=== PATIENT | female | born 1995 | race Two or more races ===

== ENCOUNTER → 2019-10-10 | Outpatient (REF) | payer OTHER | LOC: M SFHCLERA 15:24 | PROVIDERS: ATTEND Physician Assistant | DX: R30.0 Dysuria (principal) | CPT/HCPCS: 81002; 87086; G0463 ==

== ENCOUNTER 2019-11-15 13:04 | Inpatient (IN) | payer OTHER ==
[2019-11-15] MEDS ORDERED: AZITHROMYCIN INJ 500MG VIAL (J0456 PER 500MG) ONE (16:17)
[2019-11-15] MEDS ORDERED: BICITRA 30ML SOLN UDC ONE (16:17)
[2019-11-15] MEDS ORDERED: ceFAZolin 2 GM/D5W 50 ML IV BAG (J0690 PER 500MG) ONE (16:17)
[2019-11-15] MEDS ORDERED: MORPHINE PRES-FREE INJ 10 MG/10 ML VIAL (J2274) As Ordered ONE (17:52)
[2019-11-15] MEDS ORDERED: KETOROLAC 60MG 2ML VIAL As Ordered ONE (18:03)
[2019-11-15] MEDS ORDERED: ONDANSETRON 4MG/2ML VIAL As Ordered ONE (18:03)
[2019-11-15] MEDS ORDERED: ePHEDrine SULFATE 25 MG/5 ML(5MG/ML) SYRINGE As Ordered ONE (18:04)
[2019-11-15] MEDS ORDERED: PHENYLephrine HCL 500 MCG/5 ML (100MCG/ML) SYRINGE (J2370) As Ordered ONE (18:04)
[2019-11-15] MEDS ORDERED: OXYTOCIN 30 UNITS IN 0.9% NaCl 500ML IV BAG (J2590) As Ordered ONE ×2 (18:05→19:14)
[2019-11-15] MEDS ORDERED: METHYLERGONOVINE MALEATE 0.2 MG TAB As Ordered ONE (19:18)
[2019-11-15] MEDS ORDERED: METHYLERGONOVINE MALEATE 0.2 MG TAB ONE (19:18)
[2019-11-15] MEDS ORDERED: diphenhydrAMINE 50MG/ML VIAL (J1200) As Ordered ONE (19:32)
[2019-11-15] MEDS ORDERED: PERCOCET 5MG/325MG TAB As Ordered ONE (22:11)
[2019-11-15] MEDS ORDERED: PERCOCET 5MG/325MG TAB ONE (22:11)
[2019-11-16] MEDS ORDERED: METHYLERGONOVINE MALEATE 0.2 MG TAB As Ordered ONE ×2 (00:35→03:39)
[2019-11-16] MEDS ORDERED: KETOROLAC 30 MG/ML 1ML VIAL As Ordered ONE ×4 (00:36→17:24)
[2019-11-16] MEDS ORDERED: METHYLERGONOVINE MALEATE 0.2 MG TAB ONE ×2 (03:39→12:35)
[2019-11-16] MEDS ORDERED: KETOROLAC 30 MG/ML 1ML VIAL ONE ×3 (03:39→12:35)
[2019-11-16] MEDS ORDERED: diphenhydrAMINE 50MG/ML VIAL (J1200) ONE (03:39)
[2019-11-16] MEDS ORDERED: PRENATAL VITAMINS CHEWABLE TABLET ONE (03:39)
[2019-11-16] MEDS ORDERED: PRENATAL VITAMINS CHEWABLE TABLET As Ordered ONE (09:02)
[2019-11-16] MEDS ORDERED: diphenhydrAMINE 50MG/ML VIAL (J1200) As Ordered ONE (09:02)
[2019-11-16] MEDS ORDERED: PERCOCET 5MG/325MG TAB As Ordered ONE (20:00)
[2019-11-16] MEDS ORDERED: MIRALAX *UNIT DOSE* 17GM PACKET As Ordered ONE (20:05)
[2019-11-17] MEDS ORDERED: PERCOCET 5MG/325MG TAB ONE (01:56)
[2019-11-17] MEDS ORDERED: PERCOCET 5MG/325MG TAB As Ordered ONE (01:56)
[2019-11-17] MEDS ORDERED: IBUPROFEN 800 MG TAB ONE ×2 (04:57→09:30)
[2019-11-17] MEDS ORDERED: MIRALAX *UNIT DOSE* 17GM PACKET ONE (09:30)
[2019-11-17] MEDS ORDERED: PRENATAL VITAMINS CHEWABLE TABLET As Ordered ONE (09:30)
[2019-11-17] MEDS ORDERED: MIRALAX *UNIT DOSE* 17GM PACKET As Ordered ONE (09:30)
[2019-11-17] MEDS ORDERED: PRENATAL VITAMINS CHEWABLE TABLET ONE (09:30)
[2019-11-17] MEDS ORDERED: IBUPROFEN 800 MG TAB As Ordered ONE ×2 (09:31→16:57)
[2019-12-23 12:42] LABS: HEMATOCRIT 40.1 % (36.0-47.0); HEMOGLOBIN 12.8 g/dl (12.0-15.5); MEAN CORPUSCULAR HEMOGLOBIN 26.6 pg (27.0-33.0); MEAN CORPUSCULAR HGB CONC 31.9 g/dl (32.0-36.5); MEAN CORPUSCULAR VOLUME 83.2 fl (80.0-96.0); PLATELET COUNT, AUTOMATED 284 10^3/uL (150-450); RED BLOOD COUNT 4.82 10^6/uL (4.00-5.40)
[2019-12-29 12:56] LABS: ALT/SGPT 19 U/L (12-78); BILIRUBIN,TOTAL 0.5 MG/DL (0.2-1.0); BLOOD UREA NITROGEN 7 MG/DL (7-18); CALCIUM LEVEL 8.8 MG/DL (8.5-10.1); CARBON DIOXIDE LEVEL 22 MEQ/L (21-32); CHLORIDE LEVEL 106 MEQ/L (98-107); CREATININE FOR GFR 0.52 MG/DL (0.55-1.30); GLOMERULAR FILTRATION RATE > 60.0 (>60); GLUCOSE, FASTING 82 MG/DL (70-100); POTASSIUM SERUM 3.8 MEQ/L (3.5-5.1); SODIUM LEVEL 138 MEQ/L (136-145)
--- NOTE | 2020-01-08 13:02 | IPN ---
DATE: 11/15/2019 This patient has requested circumcision of their male . After discussing risks and benefits of circumcision, the medical and nomedical indications, penile block, and aftercare, expressed understanding of penile block, aftercare, and bleeding. Signed the consent form. All questions were answered. A 20-minute discussion. We await the clearance by the manager payer. TOSHA
== END 2019-11-17 06:30 | disposition home or self-care (01) | DRG 773 ==
LOC: M LDI 13:04
PROVIDERS: ADMIT Obstetrics & Gynecology; ATTEND Obstetrics & Gynecology
PROC: 10D00Z1 Extraction of Products of Conception, Low, Open Approach (ICD-10-PCS; principal; 2019-11-15)
DX: O42.013 Preterm premature rupture of membranes, onset of labor within 24 hours of rupture, third trimester (principal); Z37.0 Single live birth; Z3A.36 36 weeks gestation of pregnancy; E66.9 Obesity, unspecified; O99.214 Obesity complicating childbirth; O34.211 Maternal care for low transverse scar from previous cesarean delivery

== ENCOUNTER → 2020-05-09 | Outpatient (REF) | payer OTHER | LOC: M LAB REF 19:04 | PROVIDERS: ATTEND Physician Assistant | DX: N39.0 Urinary tract infection, site not specified (principal) ==